=== PATIENT | female | born 1970 | race Hispanic/Latino ===

== ENCOUNTER 2023-11-16 10:04 | Emergency (ER) | payer BC ==
[~2023-11-16] VITALS: Ht 165.1 cm; Wt 72.6 kg
[2023-11-16 10:34] LABS: HEMATOCRIT 39.2 % (36-48); MEAN CORPUSCULAR HEMOGLOBIN 32.5 pg (27.0-33.0); MEAN CORPUSCULAR HGB CONC 34.4 g/dL (32.0-36.0); MEAN CORPUSCULAR VOLUME 94.5 fL (79-99); PLATELET COUNT (AUTO) 224 K/uL (130-400); RED BLOOD CELL COUNT(AUTO) 4.15 MIL/uL (4.00-5.50); RED CELL DISTRIBUTION WIDTH 12.3 % (11.0-15.5); WHITE BLOOD COUNT (AUTO) 7.9 K/uL (4.8-10.8)
[2023-11-16 10:39] LABS: APPEARANCE,URINE CLEAR (CLEAR); BILIRUBIN,URINE NEGATIVE (NEGATIVE); COLOR,URINE YELLOW (YELLOW); GLUCOSE, URINE (UA) NEGATIVE (NEGATIVE); KETONES,URINE NEGATIVE (NEGATIVE); LEUKOCYTE ESTERASE ,URINE 25 Leu/uL (NEGATIVE); NITRATE,URINE NEGATIVE (NEGATIVE); OCCULT BLOOD,URINE MODERATE (NEGATIVE); PROTEIN,URINE NEGATIVE (NEGATIVE); UROBILINOGEN,URINE 0.2 mg/dL (0.2-1.0)
[2023-11-16 10:40] LABS: ADD UA MICROSCOPIC YES
[2023-11-16 10:41] LABS: MUCUS,URINE RARE LPF (None Seen); SQUAMOUS EPITHELIAL CELL,UR RARE /HPF (0-2); WBC,URINE 0-1 /HPF (0-1)
[2023-11-16 10:45] LABS: CREATININE 0.7 mg/dL (0.5-1.0); POTASSIUM 4.4 mmol/L (3.5-5.1)
[2023-11-16 10:56] LABS: BILIRUBIN,TOTAL 0.6 mg/dL (0.2-1.0)
[2023-11-16] MEDS: DEXAMETHASONE SOD PHOSPHATE 4 MG/ML 1ML VIAL IVP ONE (11:04)
[2023-11-16] MEDS: DiphenhydrAMINE HCL 50 MG/ML VIAL IV ONE (11:05)
[2023-11-16] MEDS: METOCLOPRAMIDE 10 MG/2 ML VIAL IVP ONE (11:05)
[2023-11-16] MEDS: KETOROLAC 15MG/ML VIAL (15MG/ML) IV ONE (11:05)
[2023-11-16] MEDS: 0.9%NACL 1000ML 1,000 ML IV ONE (11:05)
[2023-11-16 11:21] LABS: BASOPHILS % (MANUAL) 1 % (0-2); EOSINOPHILS % (MANUAL) 3 % (1-6); LYMPHOCYTES % (MANUAL) 41 % (22-44); MAN.DIFF COMMENT-IMPRESSION MANUAL DIFFERENTIAL; MONOCYTES % (MANUAL) 4 % (2-9); PLATELET MORPHOLOGY COMMENT ADEQUATE; SEGMENTED NEUTROPHILS % 51 % (40-70); TOTAL CELLS COUNTED 100
[2023-11-16 12:52] VITALS: BP 106/58; PULSE 73; RESP 16; O2SAT 97
[2023-11-16] MEDS ORDERED: MECL-302 PO (12:55)
== END 2023-11-16 13:24 | disposition home or self-care (01) ==
LOC: EDH 10:04
DX: G44.009 Cluster headache syndrome, unspecified, not intractable (principal); R42 Dizziness and giddiness; E11.9 Type 2 diabetes mellitus without complications; E78.00 Pure hypercholesterolemia, unspecified; Z90.49 Acquired absence of other specified parts of digestive tract; Z90.710 Acquired absence of both cervix and uterus
CPT/HCPCS: 99284; 96374; 70450; 96375 ×2; 96361; 80053; 85025; 81001; 36415; J1100; J1200; J7030; J2765; J1885